=== PATIENT | male | born 1975 | race Caucasian/White ===

== ENCOUNTER 2017-03-11 12:36 | Emergency (ER) | payer OTHER ==
[~2017-03-11] VITALS: Ht 172.7 cm; Wt 90.7 kg
--- NOTE | ~2017-03-11 | EKG ---
[address] [address] ELECTROCARDIOGRAM REPORT Name: LIAT HERNANDEZ Room [facility]: [facility] [id number] Admission: 03/11/17 Attend Phys: Discharge: 03/11/17 Date of : 75 Report #: [id number] THIS REPORT FOR: //name// [facility] ED Test Date: 2017-03-11 Test Time: 13:44:26 Pat Name: LITA HERNANDEZ Department: Room: Gender: M [employer] Instructor: [facility] [place] : 1975 Requested By: Madison Daly Order Number: [id number] MD: Reggie Kat Measurements Intervals [place] Rate: 87 P: 56 SC: 164 QRS: 32 QRSD: 97 T: 41 QT: 391 QTc: 471 Interpretive Statements Sinus arrhythmia No previous ECG available for comparison Electronically Signed On 03-11-2017 16:45:51 [employer] by Reggie Kat [email or web address] <ELECTRONICALLY SIGNED> By: Reggie Kat MD, [facility] 03/11/17 1645 1344 1344 Reggie Kat MD, FACC /EPI
[2017-03-11 13:16] LABS: ABSOLUTE NEUTROPHILS 3.7 thou/uL (1.4-8.2); BASOPHILS 1.2 % (0.0-2.0); EOSINOPHILS 1.7 % (0.0-3.0); HEMATOCRIT 46.2 % (42.0-52.0); HEMOGLOBIN 16.3 gm/dL (14.0-18.0); LYMPHOCYTES 40.8 % (24.0-44.0); MCH 29.1 pg (26.0-34.0); MCHC 35.2 g/dL (28.0-37.0); MCV 82.8 fL (80.0-100.0); MONOCYTES 8.8 % (1.0-8.0); PLATELET COUNT 161 thou/uL (150-400); POLYS 47.5 % (36.0-66.0); RBC 5.58 mil/uL (4.50-6.00); RDW 13.1 % (10.5-14.5); URINE BILIRUBIN NEGATIVE (Negative); URINE BLOOD NEGATIVE (Negative); URINE CLARITY CLEAR; URINE COLOR YELLOW; URINE GLUCOSE-RANDOM* NEGATIVE (Negative); URINE KETONES NEGATIVE (Negative); URINE LEUKOCYTES NEGATIVE (Negative); URINE NITRITE NEGATIVE (Negative); URINE PROTEIN (DIPSTICK) NEGATIVE (Negative); URINE SPECIFIC GRAVITY 1.015 (1.005-1.035); URINE UROBILINOGEN 0.2 E.U./dl (0.2-1.0); WBC 7.8 thou/uL (4.0-11.0)
[2017-03-11 13:25] LABS: ANION GAP 11 mmol/L (7-16); BUN 12 mg/dL (7-18); CALCIUM 9.1 mg/dL (8.5-10.1); CHLORIDE 103 mmol/L (98-107); CO2 27 mmol/L (21-32); CREATININE 0.9 mg/dL (0.7-1.3); GLUCOSE 104 mg/dL (74-106); POTASSIUM 3.3 mmol/L (3.5-5.1); SODIUM 141 mmol/L (136-145)
[2017-03-11 13:34] LABS: ALBUMIN 4.3 g/dL (3.4-5.0); SGOT 23 U/L (15-37); SGPT 56 U/L (30-65); TOTAL BILIRUBIN 0.5 mg/dL (<0.1-1.0); TOTAL PROTEIN 7.8 g/dL (6.4-8.2); TROPONIN-I < 0.04 ng/mL (<0.06)
[2017-03-11] MEDS ORDERED: FLONASE 0.05%50 MCG NASAL (14:25)
== END 2017-03-11 15:37 | disposition home or self-care (01) ==
LOC: ER 12:36
PROVIDERS: Physician Assistant
DX: J06.9 Acute upper respiratory infection, unspecified (principal); R42 Dizziness and giddiness